=== PATIENT | male | born 1985 | race Two or more races ===

== ENCOUNTER 2023-02-25 11:59 | Emergency (ER) | payer MEDICAID ==
[~2023-02-25] VITALS: Ht 182.9 cm; Wt 78.9 kg
[2023-02-25] MEDS ORDERED: CYCLOBENZAPRINE 10 MG TABLET PO ONE (12:30)
[2023-02-25] MEDS ORDERED: KETOROLAC TROMETHAMINE INJ 60 MG/2 ML VIAL IM ONE (12:30)
[2023-02-25] MEDS ORDERED: CYCLOBENZAPRINE 10 MG TABLET ONE (12:31)
[2023-02-25] MEDS ORDERED: KETOROLAC TROMETHAMINE INJ 30 MG/ML VIAL ONE (12:31)
[2023-02-25] MEDS ORDERED: CYCL5TAB PO (12:51)
[2023-02-25 13:24] VITALS: BP 123/74; TEMP 208.4; O2SAT 98
== END 2023-02-25 13:24 | disposition home or self-care (01) ==
LOC: ER 11:59
DX: M54.50 Low back pain, unspecified (principal)
CPT/HCPCS: 99283; 96372; J1885